=== PATIENT | female | born 1960 | race Caucasian/White ===

== ENCOUNTER 2020-12-10 13:56 | Emergency (ER) | payer BC, MEDICARE ==
[~2020-12-10] VITALS: Ht 160 cm; Wt 72.7 kg
[~2020-12-10 13:56] MED LIST: CEPH-571 PO
[2020-12-10 14:21] VITALS: BP 92/73
== END 2020-12-10 17:12 | disposition home or self-care (01) ==
LOC: ER 13:57
DX: M25.562 Pain in left knee (principal); I25.10 Atherosclerotic heart disease of native coronary artery without angina pectoris; E78.00 Pure hypercholesterolemia, unspecified; E11.9 Type 2 diabetes mellitus without complications; E03.9 Hypothyroidism, unspecified; F41.9 Anxiety disorder, unspecified; Z85.3 Personal history of malignant neoplasm of breast; Z90.89 Acquired absence of other organs; Z90.49 Acquired absence of other specified parts of digestive tract; Z88.2 Allergy status to sulfonamides; Z79.2 Long term (current) use of antibiotics
CPT/HCPCS: 73564; 99284

== ENCOUNTER 2022-09-10 23:01 | Emergency (ER) | payer BC, MEDICARE ==
[~2022-09-10] VITALS: Ht 160 cm; Wt 81.8 kg
[2022-09-10 23:29] LABS: BASOPHILS # (AUTO) 0.1 X10'3 (0-0.2); BASOPHILS % (AUTO) 0.8 % (0-1); EOSINOPHILS # (AUTO) 0.2 X10'3 (0-0.9); HEMATOCRIT 38.2 % (35.0-45.0); RED BLOOD COUNT 4.22 X10'6 (4.20-5.60)
[2022-09-10 23:31] LABS: EOSINOPHILS % (AUTO) 1.7 % (0-6); HEMOGLOBIN 12.2 g/dl (12.0-16.0); LYMPHOCYTES # (AUTO) 1.3 X10'3 (1.1-4.8); LYMPHOCYTES % (AUTO) 13.3 % (21-51); MEAN CORPUSCULAR HEMOGLOBIN 28.8 PG (27.0-31.0); MEAN CORPUSCULAR HGB CONC 31.8 g/dL (33.0-36.5); MEAN CORPUSCULAR VOLUME 90.3 FL (78-98); MONOCYTES # (AUTO) 0.8 X10'3 (0-0.9); MONOCYTES % (AUTO) 8.2 % (2-12); NEUTROPHILS # (AUTO) 7.5 X10'3 (1.8-7.7); PLATELET COUNT 256 X10'3 (140-440); WHITE BLOOD COUNT 9.9 X10'3 (4.5-11.0)
[2022-09-10] MEDS ORDERED: CITA20TA28 PO (23:50)
[2022-09-10 23:59] LABS: ALANINE AMINOTRANSFERASE 30 U/L (12-78); ALBUMIN 3.7 G/DL (3.4-5.0); ALBUMIN/GLOBULIN RATIO 0.9 (1.1-1.5); ALKALINE PHOSPHATASE 169 IU/L (46-116); ANION GAP 10 (8-16); ASPARTATE AMINO TRANSFERASE 33 U/L (10-37); BILIRUBIN,TOTAL 0.6 MG/DL (0.1-1.0); BLOOD UREA NITROGEN 15 MG/DL (7-18); BUN/CREATININE RATIO 12.5 (6.6-38.0); CHLORIDE 98 MMOL/L (99-107); GLUCOSE 290 MG/DL (70-104); MAGNESIUM 2.2 MG/DL (1.5-2.4); SODIUM 134 MMOL/L (135-145); TOTAL CARBON DIOXIDE 26.2 MMOL/L (24-32); eGFR 46 ML/MIN
[2022-09-11] MEDS ORDERED: FERR-39 PO (00:17)
[2022-09-11] MEDS ORDERED: FAMO-128 PO (00:17)
[2022-09-11] MEDS ORDERED: CETI10TA19 PO (00:17)
[2022-09-11] MEDS ORDERED: POTA-192 PO (00:23)
[2022-09-11] MEDS ORDERED: FURO-149 PO (00:23)
[2022-09-11] MEDS ORDERED: CHOL100046 PO (00:23)
[2022-09-11] MEDS ORDERED: CYAN-51 PO (00:24)
[2022-09-11] MEDS ORDERED: INSU100V11 SQ (00:37)
[2022-09-11] MEDS ORDERED: LOP12.5T PO (00:37)
[2022-09-11] MEDS ORDERED: NITR0.4T SL (00:37)
[2022-09-11] MEDS ORDERED: ATOR40TA7 PO (00:37)
[2022-09-11] MEDS ORDERED: LOSA50TA64 PO (00:37)
[2022-09-11] MEDS ORDERED: LEVO175T7 PO (00:37)
[2022-09-11] MEDS ORDERED: ALPR-163 PO (00:37)
--- NOTE | 2022-09-11 01:09 | NUR ---
Provider denies need for delta troponin.
[2022-09-11] MEDS ORDERED: azithromycin 250mg tablet PO ONE (04:10)
[2022-09-11 04:16] VITALS: BP 105/50
[2022-09-11] MEDS ORDERED: AZIT-21 PO (04:25)
[2022-09-11] MEDS ORDERED: DEXT15LI15 PO (04:25)
== END 2022-09-11 04:36 | disposition home or self-care (01) ==
LOC: ER 23:01
DX: J20.9 Acute bronchitis, unspecified (principal); I25.10 Atherosclerotic heart disease of native coronary artery without angina pectoris; I50.9 Heart failure, unspecified; E03.9 Hypothyroidism, unspecified; E11.9 Type 2 diabetes mellitus without complications; E78.00 Pure hypercholesterolemia, unspecified; F41.9 Anxiety disorder, unspecified; Z90.49 Acquired absence of other specified parts of digestive tract; Z95.1 Presence of aortocoronary bypass graft; Z98.890 Other specified postprocedural states; Z88.2 Allergy status to sulfonamides; Z79.4 Long term (current) use of insulin; Z79.899 Other long term (current) drug therapy; Z95.5 Presence of coronary angioplasty implant and graft
CPT/HCPCS: 36415; 71045; 71250; 80053; 83735; 83880; 84484; 85025; 93005; 99285